=== PATIENT | male | born 1995 | race Caucasian/White ===

== ENCOUNTER 2016-09-26 23:47 | Emergency (ER) | payer BC, OTHER ==
[~2016-09-26] VITALS: Ht 180.3 cm; Wt 72.6 kg
--- OUTSIDE RECORDS SUMMARY | 2016-09-26 23:56 | XMS REPORT ---
Author Author Judie Contreras Organization Unknown Address [address] [place], [place] [id number] Phone Care Team Providers Care Data Analyst Report Writer Name Role Phone Colette GIBSON PP Unavailable Unavailable Reason for Referral No Reason for Referral was given. Chief Complaint HCPA Text Box CC: Doing much better. History of Present Illness HCPA History Reported By: The history today is reported by the patient and the patient's mother. HCPA Text Box HPI: Revised allergy shot vaccine last year.Mom and pt has seen more progess this year.Doing much better this year.When seasons changed, was a little stuffy .Now can jessica mowing and not get all plugged. Problems Normal Routine History And Physical Adolescent (12 - 17) (V20.2); (Active ) Allergen Desensitization (V07.1); (Active) Allergic Rhinitis ( 477.9); (Active) Allergic Rhinitis Due To Animals (477.2); ( Active) Allergic Rhinitis Due To Dust Mite (477.8); (Active) Allergic Rhinitis Due To Mold (477.8); (Active) Allergic Rhinitis Due To Pollen (477.0); (Active) Medication Allergy Immunotherapy; Dr Alvarengastarted @ q 4 weeks; Start Date: 01/21 (Active)EpiPen 2-Yassine 0.3 MG/0.3ML Injection Device; Use as directed for allergic reactions; Start Date: 03/23/2010; End Date: (Active) Levocetirizine Dihydrochloride 5 MG Oral Tablet; TAKE 1 TABLET DAILY.; Start Date: 10/26/2011; End Date: (Active)Veramyst 27.5 MCG/SPRAY Nasal Suspension; USE 2 SPRAYS IN EACH NOSTRIL ONCE DAILY; Start Date: 02/28/2012; End Date: (Active)Dymista 137-50 MCG/ACT Nasal Suspension; 1 spray each nostril bid; Start Date: 02/06/2013 (Active) Allergies and Adverse Reactions No Known Drug Allergies (Active) Past Medical History History of Chronic Otitis Media (382.9); (Resolved) Procedures Procedure Procedure Date Date Completed Status Surgery - - Active Family History Maternal history of Allergic Rhinitis (Active) No Family history of Asthma (Active) Fraternal history of Allergic Rhinitis (Active) Social History Never A Smoker (Active) No History of Secondhand Tobacco Smoke In Home (Active) Racial Background (___ %) (Active) Sports Activities Basketball (Active) History of Sports Activities Track And Field (Active) Housing Heating Source Central Forced Air (Active ) Housing Cooling Source Central (Active) Educational Level - In Grade 11 (Active) Vital Signs Date Description Test Result 06 Feb 2013 02:10 PM recorded by: Gala King Height 70 in Weight 151 lb Body Mass Index Calculated 21.62 Body Surface Area Calculated 1.85 Temperature 98.5 F Advance Directives No Advance Directives available. Encounters Appointment 02/06/2013
--- NOTE | 2016-09-27 01:01 | ED GU-Male ---
General Chief Complaint: Abdominal/GI Problems Stated Complaint: AB PAIN Nursing Triage Note: Pt presents to ED with c/o lower abdominal pain and nausea. Pt reports he has a vericose vein on left testicle, pt reports he rides a unicycle and it isn't very "easy" on his testicles. Source: patient Exam Limitations: no limitations History of Present Illness Time seen by provider: 00:50 Initial Comments Here with complaint of left testicle pain since yesterday. States that he rides a unicycle and has been very active in writing this weekend including doing some tricks. Pain settled down and was riding in the road again and now the pain is worse. She states it's not severe. Thought that there was some swelling but states that is better. Has history of varicosity of the left testicle previously known. Denies nausea or vomiting. Denies difficulty with urination or bowel movements. Timing/Duration: yesterday, changing over time Severity/Quality: mild, aching Location: scrotal Radiation: groin Activities at Onset: physical activity Prior Genitourinary Problems: similar symptoms Modifying Factors: Worsens With Urinating Associated Symptoms: No abdominal pain, No dysuria, No nausea/vomiting, No urinary frequency Allergies and Home Medications Allergies Coded Allergies: No Known Drug Allergies (Unverified , 09/27/16) Constitutional: see HPINo fever Respiratory: no symptoms reported Cardiovascular: no symptoms reported Gastrointestinal: see HPINo nausea, No vomiting Genitourinary: see HPIdenies dysuria, denies flank pain, pain Musculoskeletal: no symptoms reported Past Ybbwlnk-Sfuzfk-Cpafem Hx Patient Social History Alcohol Use: Denies Use Recreational Drug Use: No Smoking Status: Never a Smoker 2nd Hand Smoke Exposure: No Recent Foreign Travel: No Contact w/Someone Who Travel: No Recent Infectious Disease Expo: No Recent Hopitalizations: No Seasonal Allergies Seasonal Allergies: Yes Surgeries HX Surgeries: No Respiratory Hx Respiratory Disorders: No Cardiovascular Hx Cardiac Disorders: No Neurological Hx Neurological Disorders: No Reproductive System Hx Reproductive Disorders: No Sexually Transmitted Disease: No Genitourinary Hx Genitourinary Disorders: Yes ("Varicose vein left testicle") Gastrointestinal Hx Gastrointestinal Disorders: No Endocrine Hx Endocrine Disorders: No HEENT HX ENT Disorders: No Psychosocial Hx Psychiatric Problems: No Integumentary HX Skin/Integumentary Disorder: No Blood Transfusions Hx Blood Disorders: No Adverse Reaction to a Blood Tr: No Reviewed Nursing Assessment Reviewed/Agree w Nursing PMH: Yes Physical Exam Vital Signs Vital Sign - Last 12Hours 09/27/16 00:15 Temp 98.5 Pulse 77 Resp 18 B/P 151/90 Pulse Ox 98 O2 Delivery Room Air Capillary Refill : Less Than 3 Seconds General Appearance: WD/WN no apparent distress Neck: full range of motion supple Cardiovascular: regular rate, rhythm no murmur Respiratory: lungs clear normal breath sounds Gastrointestinal: non tender soft Male: no herniaNo inguinal tenderness, testicular tenderness (mild tenderness to the left testicle without significant swelling. Vascular structures with some swelling.) Neurologic/Psychiatric: alert oriented x 3 Progress/Results/Core Measures Results/Orders My Orders Orders-ODALIS RIVERO MD Us Scrotum (Testicle) [id number] (09/27/16 00:59) Vital Signs/I&O Vital Sign - Last 12Hours 09/27/16 00:15 Temp 98.5 Pulse 77 Resp 18 B/P 151/90 Pulse Ox 98 O2 Delivery Room Air Blood Pressure Mean: 110 Progress Note : Progress Note Seen and evaluated. Ultrasound scrotum ordered. 0155: Ultrasound does not show torus testicles. Ultrasound does show varicocele of the left testicle. This is discussed with the patient. Discharged home with return precautions. Patient verbalize understanding instructions and agreement with plan. Diagnostic Imaging Diagonstic Imaging: Ultrasound Plain Films/CT/US/NM/MRI: other (scrotum) Comments Preliminary read shows moderate left varicocele Departure Impression Impression: Primary Impression: Left varicocele Disposition: HOME, SELF-CARE Condition: Improved Departure-Patient Inst. Decision time for Depature: 01:53 Referrals: NO,LOCAL PHYSICIAN (PCP) Primary Care Physician EZEKIEL LLAMAS MD Patient Instructions: Varicocele Add. Discharge Instructions: All discharge instructions reviewed with patient and/or family. Voiced understanding. Avoid irritation of the testicle for the next several days including avoiding regarding the unicycle for a few days. You may follow-up with the urologist of your choice or the one listed. You may follow-up with [facility] for assistance with follow-up as well. You may use ice packs to the affected area as needed. You may take ibuprofen 800 mg every 8 hours as needed for pain and/ or Tylenol 1000 mg every 8 hours as needed for pain as well. Copy Copies To 1: WESTON BRONSON MD, TIMOTHY D MD Sep 27, 2016 01:00
[2016-09-27 02:09] VITALS: BP 139/66
--- NOTE | 2016-09-27 08:26 | Diagnostic Imaging Report ---
INDICATION: Left scrotal pain. FINDINGS: Incidental 6-mm epididymal cyst on the left noted. No suspicious hydrocele. Normal color Doppler blood flow to the epididymides and testicular parenchyma bilaterally. No solid or cystic testicular parenchymal mass. IMPRESSION: No evidence for torsion or orchitis. Benign left epididymal tail cyst. No acute-appearing abnormality. I agree with the preliminary. Dictated by: Dictated on workstation # [id number]
== END 2016-09-27 02:09 | disposition home or self-care (01) ==
LOC: ER 23:53
DX: I86.1 Scrotal varices (principal); R11.0 Nausea
CPT/HCPCS: 76870; 99282